=== PATIENT | female | born 1960 | race Caucasian/White ===

== ENCOUNTER 2020-07-28 16:46 | Outpatient (CLI) | payer OTHER, SELFPAY ==
--- NOTE | ~2020-07-28 | XR_ITS ---
XR lumbar spine 2-3V DATE: 07/28/2020 17:21 INDICATION: Intermittent low back pain TECHNIQUE: AP, lateral, coned lateral lumbosacral views COMPARISON: None FINDINGS: There is moderate rotatory levoscoliosis of the lower thoracic and lumbar spine. There is diffuse osteopenia. There is mild to moderate degenerative disc disease, most prominent at L2-3. No fracture or dislocation or bone destruction is detected. Normal sacroiliac joints. IMPRESSION: Moderate rotatory levoscoliosis Mild to moderate degenerative disc disease Osteopenia Reviewed, dictated and finalized at location A.
--- NOTE | ~2020-07-28 | XR_ITS ---
XR sacroiliac joints min 3V DATE: 07/28/2020 17:21 INDICATION: Intermittent low back pain following twisting motions TECHNIQUE: AP and oblique views COMPARISON: None FINDINGS: No fracture, dislocation, erosive change or ankylosis at the sacroiliac joints. IMPRESSION: No significant abnormality Reviewed, dictated and finalized at Location A. Reviewed, dictated and finalized at location A. IMPRESSION: No significant abnormality
== END 2020-07-28 16:47 | disposition home or self-care (01) ==
LOC: CHSIMG 16:52
PROVIDERS: PCP Internal Medicine; Visit Provider Internal Medicine
DX: M54.5 Low back pain (principal)
CPT/HCPCS: 72100; 72202

== ENCOUNTER 2020-08-04 09:30 | Outpatient (CLI) | payer OTHER, SELFPAY ==
--- NOTE | ~2020-08-04 | DEXA_ITS ---
BMD(1) Young-Adult(2) Age-Matched(3) Region (g/cm2) T-score Z-score WHO Classification L1 0.798 -2.8 -1.3 Osteoporosis L2 0.971 -2.0 -0.5 Osteopenia L3 1.077 -1.1 0.3 Osteopenia L4 0.989 -1.8 -0.3 Osteopenia L1-L4 0.968 -1.8 -0.4 Osteopenia Trend: L1-L4 Change vs Change vs Measured Age BMD(1) Baseline Previous Date (years) (g/cm2) (%) (%) 08/04/2020 60.1 0.968 baseline - 1 - Statistically 68% of repeat scans fall within 1SD (+- 0.010 g/cm2 for AP Spine L1-L4) 2 - [place] (Combined NHANES (ages 20-30) / Daily Secret (ages 20-40)) AP Spine Reference Population (v112) 3 - Matched for Age, Weight (females 25-100 kg), Ethnic 11 - World Health Organization - Definition of Osteoporosis and Osteopenia for Women: Normal = T-score at or above -1.0 SD; Osteopenia = T-score between -1.0 and -2.5 SD; Osteoporosis = T-score at or below -2.5 SD; (WHO definitions only apply when a young healthy Women reference database is used to determine T-scores.) Printed: 08/04/2020 10:21:31 AM (13.60)76:3.00:50.00:12.0 0.00:9.72 0.60x1.05 16.2:%Fat=13.8% 0.00:0.00 0.00:0.00 Verify bone is centered and there is sufficient tissue next to bone. Filename: [id number].dfx Scan Mode: Standard;Diurnalcan 37.0 [employer] [id number] BMD(1) Young-Adult(2,7) Age-Matched(3) Region (g/cm2) T-score Z-score WHO Classification Neck Left 0.909 -0.9 0.5 Normal Right 0.882 -1.1 0.3 Osteopenia Mean 0.895 -1.0 0.4 Normal Difference 0.027 0.2 0.2 - Total Left 0.967 -0.3 0.8 Normal Right 0.957 -0.4 0.7 Normal Mean 0.962 -0.4 0.7 Normal Difference 0.009 0.1 0.1 - Hip [place] Length Comparison (mm) (Right = 104.2 mm) (Mean = 106.2 mm) (Left = 105.7 mm) Trend: Total Mean Change vs Change vs Measured Age BMD(1) Baseline Previous Date (years) (g/cm2) (%) (%) 08/04/2020 60.1 0.962 baseline - 1 - Statistically 68% of repeat scans fall within 1SD (+- 0.010 g/cm2 for DualFemur Total) 2 - [place] (Combined NHANES (ages 20-30) / Daily Secret (ages 20-40)) Femur Reference Population (v112) 3 - Matched for Age, Weight (females 25-100 kg), Ethnic 7 - DualFemur Total T-score difference is 0.1. Asymmetry is None. 11 - World Health Organization - Definition of Osteoporosis and Osteopenia for Women: Normal = T-score at or above -1.0 SD; Osteopenia = T-score between -1.0 and -2.5 SD; Osteoporosis = T-score at or below -2.5 SD; (WHO definitions only apply when a young healthy Women reference database is used to determine T-scores.) Printed: 08/04/2020 10:21:31 AM (13.60); Filename: [id number].dfx; Right Femur; 16.3:%Fat=23.1%; Neck Angle (deg)= 54; Scan Mode: Standard 37.0 uGy; Left Femur; 15.6:%Fat=24.2%; Neck Angle (deg)= 49; Scan Mode: Standard 37.0 uGy [employer] [id number] Dear Ashlie Prabhakar, Your patient Erinn Gomez completed a BMD test on 08/04/2020 using the [employer] DXA System (analysis version: 13.60) manufactured by [employer]. The following summarizes the results of our evaluation. PATIENT BIOGRAPHICAL: Name: Erinn Gomez Date: 1960 Height: 65.0 in. Gender: Femal
--- NOTE | ~2020-08-04 | MM_ITS ---
EXAMINATION: MM screening [facility] BI w daria HISTORY: Screening TECHNIQUE: Craniocaudal and mediolateral oblique 3-D tomosynthesis images were obtained and synthetic 2-D images were generated. CAD analysis was submitted and interpreted. COMPARISON: Comparison to multiple prior studies sequentially, with oldest reviewed study dated 03/2013. BREAST PARENCHYMAL COMPOSITION: The breasts are extremely dense, which lowers the sensitivity of mamm ography. FINDINGS: There is no evidence of suspicious mass, calcification, or architectural distortion to sugg est malignancy in either breast. There has been no suspicious interval change. IMPRESSION: 1. No mammographic evidence of malignancy. 2. Recommend routine screening mammography in one year. BI-RADS Category 1: Negative Reviewed, dictated and finalized at location A.
== END 2020-08-04 09:31 | disposition home or self-care (01) ==
LOC: CHSIMG 09:32
PROVIDERS: PCP Internal Medicine; Visit Provider Internal Medicine
DX: Z12.31 Encounter for screening mammogram for malignant neoplasm of breast (principal); M81.0 Age-related osteoporosis without current pathological fracture
CPT/HCPCS: 77063; 77067; 77080

== ENCOUNTER 2020-12-23 10:42 | Emergency (ER) | payer OTHER, SELFPAY ==
--- NOTE | ~2020-12-23 | XR_ITS ---
EXAMINATION: XR forearm LT 2V DATE: 12/23/2020 11:20 INDICATION: Left forearm pain. TECHNIQUE: 2 views of left forearm were obtained. COMPARISON: None. FINDINGS: Bone alignment is normal. No fracture. Joint spaces are well maintained. There is no elbow joint effusion. IMPRESSION: 1. Normal left forearm. Reviewed, dictated and finalized at location A. WEB SERVICES DEVELOPER IMPRESSION: 1. Normal left forearm.
[2020-12-23 11:00] VITALS: BP 131/86; PULSE 75; RESP 16; TEMP 36.8; O2SAT 100
--- NOTE | 2020-12-23 11:08 | ED.UPPEXIN ---
HPI - Extremity Injury (Upper) General Chief Complaint: Extremity Injury, Upper Stated Complaint: L Arm pain Source: patient Mode of arrival: ambulatory Limitations: no limitations History of Present Illness HPI narrative: this is a 60-year-old female that presents with no significant past medical history after her horse kicked her in her left forearm occurred last night causing pain, overnight the patient's pain had improved although she still having some discomfort and her advised her to come to the emergency room to have it evaluated. Currently she has good range of motion in her wrist elbow with no numbness or tingling has strong brisk pulses on the left arm and in the medial forearm has some mild swelling with some tenderness with palpation. complaint: injury to: left Onset (ago): day(s) Other Extremity Injury: Left: forearm ( tender with palpation) Other injuries: none Handedness: right Place: home Severity: mild Severity scale (1-10): 2 Relieving factors: immobilization and medication Exacerbating factors: movement of extremity Context: direct blow Related Data Home Medications Medication Instructions Recorded Confirmed No Home Medications 12/23/20 12/23/20 Allergies Allergy/AdvReac Type Severity Reaction Status Date / Time No Known Allergies Allergy Verified 12/23/20 11:09 Review of Systems Review of Systems: All systems reviewed & are unremarkable except as noted in HPI and below PMFSH Past Medical History Medical History Patient denies medical problems Exam Const: General: no acute distress and alert Orientation/consciousness: patient oriented x3 HENMT: Head: normal to inspection Eyes: Conjunctivae: conjunctivae normal Pupils: Equal, round and reactive pupils present EOM: EOMs intact bilaterally Neck: Neck: normal visual inspection, no lymphadenopathy and no meningeal signs Chest: Chest palpation & inspection: normal inspection of the chest Resp: Effort & Inspection: normal respiratory effort Auscultation: clear to auscultation bilaterally Cardio: Rate: regular rate Rhythm: regular rhythm GI: GI Palp: Yes Soft to palpation Percussion: Yes normal to percussion : General: Yes no CVA tenderness Skin: General skin exam: normal color Rashes: no rashes Neuro: General: patient oriented x3 Extrem: Other: tender left forearm with palpation, with good range of motion in her elbow and left wrist. Psych: Mental Status: mental status grossly normal Course Course Emergency Course: Patient was comfortable pain level is markedly reduced since last night and evaluated x-ray with patient Critical Care Time Critical Care Time Critical Care Time: No Discharge Plan Discharge Clinical Impression: Sprain of forearm, left Patient Disposition: Home, Self-Care Condition: Stable Instructions: Antibiotic Form, Sprain (ED) Additional Instructions: follow-up with primary care physician if symptoms persist or worsen Prescriptions: No Action No Home Medications RF: 0 Follow-up/Referrals: Ashlie Prabhakar MD [Primary Care Provider] - Time of Disposition: 11:31
[2020-12-23 11:41] VITALS: RESP 16
== END 2020-12-23 11:40 | disposition home or self-care (01) ==
PROVIDERS: Emergency Provider Emergency Medicine; PCP Internal Medicine
DX: S63.592A Other specified sprain of left wrist, initial encounter (principal); W55.12XA Struck by horse, initial encounter
CPT/HCPCS: 73090; 99282; 99283

== ENCOUNTER 2023-03-05 07:46 | Outpatient (CLI) | payer OTHER, SELFPAY ==
--- NOTE | ~2023-03-05 | DEXA_ITS ---
Bone Density Report Name: FILOMENA PONCE Age: 62 Sex: Female Ethnicity: White Date of : 1960 Indication: postmenopausal; screening for osteoporosis; height loss; Referring Provider: Ashlie Prabhakar Study: Bone densitometry was performed. Exam Date: March 05, 2023 Accession number: [id number] Bone Density: Region BMD T-score Z-score Classification AP Spine(L1-L4) 0.798 -2.3 -0.7 Osteopenia Femoral Neck (Left) 0.689 -1.4 0.0 Osteopenia Total Hip (Left) 0.820 -1.0 0.1 Normal Femoral Neck (Right) 0.713 -1.2 0.2 Osteopenia Total Hip (Right) 0.824 -1.0 0.1 Normal Femoral Neck Mean 0.701 -1.3 0.1 Osteopenia Total Hip Mean 0.822 -1.0 0.1 Normal World Health Organization criteria for BMD impression classify patients as: Normal (T-score at or above -1.0), Osteopenia (T-score between -1.0 and -2.5), or Osteoporosis (T-score at or below -2.5). 10-year Fracture Risk(1): Major Osteoporotic Fracture 7.8% Hip Fracture 0.7% Reported Risk Factors: [place] (), Neck BMD=0.689, BMI=22.5 (1) FRAX(R) Version 3.08. Fracture probability calculated for an untreated patient. Fracture probability may be lower if the patient has received treatment. Clinical Information Provided by Patient: Has used the following medications: Vitamin D, Calcium Patient maximum height was 66 Menopause Age: 50 Does not regularly consume dairy products Drinks caffeinated beverages Onset of menses at age 12 Number of children 3 Impression: The patient has low bone mass, based on the Total Spine T-score. Discussion: BONE DENSITY IS LOW AT ONE OR MORE SKELETAL SITES. This patient's lowest T-score is low at one or more skeletal sites. It meets the World Health Organization's (WHO) criteria for ?low bone mass? (T-score between -1.0 and -2.5). The patient's 10-year risk of fracture as calculated by FRAX is less than the threshold where pharmacological therapy is recommended by the National Osteoporosis Foundation (NOF). However, all treatment decisions require clinical judgment and consideration of individual patient factors, including patient preferences, comorbidities, previous drug use, risk factors not captured in the FRAX model (e.g., frailty, falls, vitamin D deficiency, increased bone turnover, interval significant decline in bone density) and possible under or overestimation of fracture risk by FRAX. The patient should follow a healthful lifestyle (good nutrition with adequate calcium and vitamin D, and appropriate weight-bearing exercise). Follow-Up: Consider repeating this study in 2 to 3 years to reassess this patient's status, or sooner if there is some new clinical indication. Reported by: Dr. Marcello Pinon on 03/05/2023 8:27:00 AM.
--- NOTE | ~2023-03-05 | MM_ITS ---
EXAMINATION: MM screening the[facility] BI w daria HISTORY: Screening mammogram TECHNIQUE: Craniocaudal and mediolateral oblique 3-D tomosynthesis images were obtained and synthetic 2-D images were generated. CAD analysis was submitted and interpreted. COMPARISON: 08/04/2020, 09/23/2018, 09/10/2017 bilateral screening mammogram examinations BREAST PARENCHYMAL COMPOSITION: The breasts are heterogeneously dense, which may obscure small masses . FINDINGS: There is no evidence of suspicious mass, calcification, or architectural distortion to sugg est malignancy in either breast. There has been no suspicious interval change. IMPRESSION: 1. No mammographic evidence of malignancy. 2. Recommend routine screening mammography in one year. BI-RADS Category 1: Negative Reviewed, dictated and finalized at location A.
== END 2023-03-05 07:47 | disposition home or self-care (01) ==
PROVIDERS: PCP Internal Medicine; Visit Provider Internal Medicine
DX: Z12.31 Encounter for screening mammogram for malignant neoplasm of breast (principal); Z78.0 Asymptomatic menopausal state; M85.89 Other specified disorders of bone density and structure, multiple sites
CPT/HCPCS: 77063; 77067; 77080

== ENCOUNTER 2023-04-02 15:37 | Outpatient (CLI) | payer OTHER, SELFPAY ==
--- NOTE | ~2023-04-02 | XR_ITS ---
Cervical Spine: AP, lateral, open-mouth views Clinical History: Pain Findings: There is straightening of the normal cervical lordosis. Minimal grade 1 anterolisthesis of C2 over C3 noted. There is moderate degenerative disc narrowing throughout cervical spine from C3 thr ough C7. There is mild facet arthropathy throughout the cervical spine. Pre-vertebral soft tissues ar e unremarkable. Impression: Mild to moderate degenerative spondylosis, as detailed above. Reviewed, dictated and finalized at location M. Impression: Mild to moderate degenerative spondylosis, as detailed above.
== END 2023-04-02 15:38 | disposition home or self-care (01) ==
LOC: CHSIMG 15:39
PROVIDERS: PCP Internal Medicine; Visit Provider Internal Medicine
DX: M54.2 Cervicalgia (principal); M43.02 Spondylolysis, cervical region
CPT/HCPCS: 72040

== ENCOUNTER 2025-02-25 08:47 | Outpatient (CLI) | payer OTHER, SELFPAY ==
--- NOTE | ~2025-02-25 | MM_ITS ---
EXAMINATION: MM screening [facility] BI w daria HISTORY: Screening TECHNIQUE: Craniocaudal and mediolateral oblique 3-D tomosynthesis images were obtained and synthetic 2-D images were generated. CAD analysis was submitted and interpreted. COMPARISON: Comparison to multiple prior studies sequentially, with oldest reviewed study dated 07/2020. BREAST PARENCHYMAL COMPOSITION: Dense: The breasts are extremely dense, which lowers the sensitivity of mammography. FINDINGS: There is a developing cluster of indeterminate calcifications in the lower inner quadrant o f the left breast, anterior-middle depth. The right breast is stable without evidence for malignancy. IMPRESSION: 1. Developing cluster of indeterminate left breast calcifications. 2. Magnification views are recommended. BI-RADS Category 0: Incomplete: Needs additional imaging evaluation. Reviewed, dictated and finalized at location A.
--- OUTSIDE RECORDS SUMMARY | 2025-02-25 09:10 | XMS_ITS | Clinical Summary ---
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 Gender Identity Not on file Sexual Orientation Not on file Plan of Treatment Health Maintenance Due Date Last Done Comments Cervical Cancer Screening Pa p Smear (Age 30 to 64) Every 3 Years 1960 Colorectal Cancer Screening Colonoscopy (10 Years) 1960 Annual Physical 1963 Hepatitis C 1978 DTaP, Tdap and Td Vaccines ( 1 - Tdap) 1979 Cervical Cancer Screening Pa p with HPV Testing (Age 30 to 64) Every 5 Years 1990 Cervical Cancer Screening with HPV 1990 Mammogram Screening 2000 Zoster Vaccines (1 of 2) 2010 COVID-19 Vaccine (2023-2 5 season) 2024 RSV Immunization or 60+ Years (1 - 1-dose 75+ series) 2035 Meningococcal B Vaccine Aged Out No l onger eligible based on patient's age to complete this topic Meningococcal Vaccine Aged Out No ryan ronan eligible based on patient's age to complete this topic Pneumococcal Vaccine: Pediat rics (0 to 5 Years) and At-Risk Patients (6 to 64 Years) Aged Out No longer eligible b ased on patient's age to complete this topic RSV Immunizations Under 20 Months Aged Out No longer eligible based on patient's age to complete this topic
== END 2025-02-25 08:48 | disposition home or self-care (01) ==
PROVIDERS: PCP Internal Medicine; Visit Provider Internal Medicine
DX: Z12.31 Encounter for screening mammogram for malignant neoplasm of breast (principal); R92.8 Other abnormal and inconclusive findings on diagnostic imaging of breast
CPT/HCPCS: 77063; 77067

== ENCOUNTER 2025-04-03 09:50 | Outpatient (CLI) | payer OTHER, SELFPAY ==
--- NOTE | ~2025-04-03 | MM_ITS ---
EXAMINATION: MM diagnostic theodore LT w daria HISTORY: Follow-up left breast calcifications TECHNIQUE: Additional 3-D tomosynthesis images of the left breast were performed and synthetic 2-D im ages were generated. CAD analysis was submitted and interpreted. COMPARISON: Comparison to multiple prior studies sequentially, with oldest reviewed study dated 07/2020. BREAST PARENCHYMAL COMPOSITION: Dense: The breasts are extremely dense, which lowers the sensitivity of mammography. FINDINGS: There is a cluster of indeterminate amorphous calcifications lower inner quadrant of the le ft breast, anterior-middle depth. There are no discrete mass is or architectural distortion. IMPRESSION: 1. Clustered indeterminate left breast calcifications lower inner quadrant, anterior-middle depth. 2. Stereotactic left breast biopsy. BI-RADS category 4, suspicious findings. Reviewed, dictated and finalized at location A. IMPRESSION: 1. Clustered indeterminate left breast calcifications lower inner quadrant, ant erior-middle depth. 2. Stereotactic left breast biopsy. BI-RADS category 4, suspicious findings.
--- OUTSIDE RECORDS SUMMARY | 2025-04-03 09:58 | XMS_ITS | Clinical Summary ---
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
== END 2025-04-03 09:51 | disposition home or self-care (01) ==
LOC: CHSIMG 09:51
PROVIDERS: PCP Internal Medicine; Visit Provider Internal Medicine
DX: R92.8 Other abnormal and inconclusive findings on diagnostic imaging of breast (principal)
CPT/HCPCS: 77061; 77065; G0279